=== PATIENT | female | born 1995 | race Two or more races ===

== ENCOUNTER 2016-09-15 16:42 | Emergency (ER) | payer SELFPAY ==
[2016-09-15 16:46] VITALS: BP 113/73
[2016-09-15] MEDS ORDERED: Rabies Vaccine, PCEC INJ* 1 ml IM ONE (18:59)
[2016-09-15] MEDS ORDERED: Rabies Immune Globulin 10 ML* 150 UNIT/ML VIAL IM ONE (19:01)
--- NOTE | 2016-09-15 19:22 | ED ---
Bite Injury/Animal - HPI Summary HPI Summary: 20F presents with bat in room when woke up yesterday. She says she woke up to a bat flying around her room. She denies any bite or scratch. She has never had the rabies immunization before. She did not capture the bat. Her tetanus she believes was two years ago. She goes to [place] and [place] near [place]. - History of Current Complaint Chief Complaint: EDGeneral Stated Complaint: BAT EXPOSURE Time Seen by Provider: 09/15/16 17:12 Pain Intensity: 0 - Allergies/Home Medications Allergies/Adverse Reactions: Allergies Allergy/AdvReac Type Severity Reaction Status Date / Time No Known Allergies Allergy Verified 09/15/16 16:45 PMH/Surg Hx/FS Hx/Imm Hx Endocrine/Hematology History: Denies: Hx Anticoagulant Therapy Cardiovascular History: Denies: Hx Hypertension Infectious Disease History: No Infectious Disease History: Denies: Traveled Outside the in Last 30 Days - Family History Known Family History: Negative: Cardiac Disease - Social History Alcohol Use: None Substance Use Type: Reports: None Smoking Status (MU): Never Smoked Tobacco Review of Systems Negative: Fever Negative: Chest Pain Negative: Shortness Of Breath Positive: Other - bat exposure All Other Systems Reviewed And Are Negative: Yes Physical Exam Triage Information Reviewed: Yes Vital Signs On Initial Exam: Initial Vitals Temp Pulse Resp BP Pulse Ox 98.3 F 89 16 113/73 100 09/15/16 16:45 09/15/16 16:45 09/15/16 16:45 09/15/16 16:45 09/15/16 16:45 Vital Signs Reviewed: Yes Appearance: Positive: Well-Appearing Skin: Positive: Warm, Dry Head/Face: Positive: Normal Head/Face Inspection Eyes: Positive: Normal, EOMI, MERLINE, Conjunctiva Clear ENT: Positive: Normal ENT inspection, Pharynx normal, TMs normal Respiratory/Lung Sounds: Positive: Clear to Auscultation, Breath Sounds Present Cardiovascular: Positive: Normal, RRR Diagnostics - Vital Signs Vital Signs Temp Pulse Resp BP Pulse Ox 09/15/16 18:07 98.3 F 89 16 113/73 99 09/15/16 16:45 98.3 F 89 16 113/73 100 - Laboratory Lab Statement: Any lab studies that have been ordered have been reviewed, and results considered in the medical decision making process. Bite Injury Course/Dx - Course Course Of Treatment: 20F presents with bat in room when woke up yesterday. She says she woke up to a bat flying around her room. She denies any bite or scratch. She has never had the rabies immunization before. She did not capture the bat. Her tetanus she believes was two years ago. nurse called [facility] and said to give rabies. no wound so nurse gave in arm. patient understands and agrees with plan. - Diagnoses Differential Diagnosis/HQI/PQRI: Positive: Puncture, Rabies Exposure, Other - abrasion Provider Diagnosis: Exposure to bat without known bite Discharge - Discharge Plan Condition: Good Disposition: HOME Patient Education Materials: Rabies Vaccine (ED) Referrals: [facility] [Primary Care Provider] - Additional Instructions: Follow up with health department Return to ED if develop any new or worsening symptoms
== END 2016-09-15 20:45 | disposition home or self-care (01) ==
LOC: ED 16:42
DX: Z20.3 Contact with and (suspected) exposure to rabies (principal)
CPT/HCPCS: 90375; 90675; 96372; 99282

== ENCOUNTER 2016-09-30 17:35 | Emergency (ER) | payer SELFPAY ==
[2016-09-30 17:48] VITALS: BP 102/68
[2016-09-30] MEDS ORDERED: Rabies VIRUS VACCINE, HDCV* 2.5 UNIT/ML 1 ML IM ONE (17:50)
--- NOTE | 2016-09-30 17:56 | UC ---
UC General HPI - HPI Summary HPI Summary: Pt woke to a bat in her room at [facility] in [place] about 2 weeks ago. Received rabies prophylaxis and started rabies series, here for day 14 rabies vaccine. Denies any new symptoms. - History of Current Complaint Chief Complaint: UCGeneralIllness Stated Complaint: RABIES Time Seen by Provider: 09/30/16 17:38 Hx Obtained From: Patient Hx Last Menstrual Period: JULY 2016 - HAS IRREGULAR PERIODS Onset/Duration: Resolved Current Severity: None - Allergy/Home Medications Allergies/Adverse Reactions: Allergies Allergy/AdvReac Type Severity Reaction Status Date / Time No Known Allergies Allergy Verified 09/30/16 17:43 Home Medications: Home Medications NK [No Home Medications Reported] 09/30/16 [History Confirmed 09/30/16] PMH/Surg Hx/FS Hx/Imm Hx Previously Healthy: Yes Other History Of: Negative For: Anticoagulant Therapy - Surgical History Surgical History: None - Family History Known Family History: Negative: Cardiac Disease - Social History Lives: With Family Alcohol Use: None Substance Use Type: None Smoking Status (MU): Never Smoked Tobacco Review of Systems Constitutional: Negative Skin: Negative Eyes: Negative ENT: Negative Respiratory: Negative Cardiovascular: Negative Gastrointestinal: Negative Genitourinary: Negative Motor: Negative Neurovascular: Negative Musculoskeletal: Negative Neurological: Negative Psychological: Negative All Other Systems Reviewed And Are Negative: Yes Physical Exam Triage Information Reviewed: Yes Appearance: Well-Appearing, No Pain Distress, Well-Nourished Vital Signs: Initial Vital Signs Temp 99.5 F 09/30/16 17:43 Pulse 77 09/30/16 17:43 Resp 16 09/30/16 17:43 BP 102/68 09/30/16 17:43 Pulse Ox 100 09/30/16 17:43 Vital Signs Reviewed: Yes Eye Exam: Normal, Other - PERRL Eyes: Positive: Conjunctiva Clear ENT Exam: Normal ENT: Positive: Normal ENT inspection, Hearing grossly normal, Pharynx normal, TMs normal Dental Exam: Normal Neck exam: Normal Respiratory Exam: Normal Respiratory: Positive: Chest non-tender, Lungs clear, Normal breath sounds, No respiratory distress, No accessory muscle use Cardiovascular Exam: Normal Cardiovascular: Positive: RRR, No Murmur Musculoskeletal Exam: Normal Neurological Exam: Normal Neurological: Positive: Alert Psychological Exam: Normal Skin Exam: Normal Course/Dx - Differential Dx - Multi-Symptom Provider Diagnoses: Rabies vaccine Discharge - Discharge Plan Condition: Stable Disposition: HOME Patient Education Materials: Rabies Vaccine (By injection) Referrals: [facility] [Primary Care Provider] - Additional Instructions: If you have any further questions, you can call the [facility].
== END 2016-09-30 18:25 | disposition home or self-care (01) ==
LOC: UCEAST 17:35
DX: Z20.3 Contact with and (suspected) exposure to rabies (principal); Z23 Encounter for immunization
CPT/HCPCS: 90471; 99211; G0463

== ENCOUNTER 2017-06-09 21:35 | Emergency (ER) | payer OTHER ==
--- NOTE | 2017-06-09 21:40 | UC ---
Respiratory Complaint HPI - HPI Summary HPI Summary: Pt presents with sinus congestion and post nasal drip for the last 5-6 days. Last night she began to have an "upset stomach", but says she was not nauseous and did not vomit - feels fine today. Today has a mild cough and feels burning in her throat. Has not been taking anything OTC. Denies fever, chills, sore throat, SOB, chest pain, abdominal pain, n/v/d/c. - History of Current Complaint Stated Complaint: CONGESTION Time Seen by Provider: 06/09/17 21:39 Hx Obtained From: Patient Hx Last Menstrual Period: JULY 2016 - HAS IRREGULAR PERIODS Onset/Duration: Gradual Onset Character: Cough: Nonproductive - Allergies/Home Medications Allergies/Adverse Reactions: Allergies Allergy/AdvReac Type Severity Reaction Status Date / Time No Known Allergies Allergy Verified 06/09/17 22:01 PMH/Surg Hx/FS Hx/Imm Hx - Additional Past Medical History Additional PMH: None Previously Healthy: Yes Other History Of: Negative For: Anticoagulant Therapy - Surgical History Surgical History: None - Family History Known Family History: Negative: Cardiac Disease - Social History Occupation: Student Lives: Dormitory/Roommates Alcohol Use: None Substance Use Type: None Smoking Status (MU): Never Smoked Tobacco Review of Systems Constitutional: Negative Skin: Negative Eyes: Negative ENT: Sinus Congestion Respiratory: Cough Cardiovascular: Negative Gastrointestinal: Negative Neurological: Negative Psychological: Negative All Other Systems Reviewed And Are Negative: Yes Physical Exam - Summary Physical Exam Summary: GENERAL: NAD. WDWN. No pain distress. SKIN: No rashes, sores, lesions, or open wounds. HEENT: Head: AT/NC Eyes: Conjunctiva clear without inflammation or discharge. Ears: Hearing grossly normal. TMs intact, no bulging, erythema, or edema. Nose: Nasal mucosa pink and moist. NTTP maxillary and frontal sinus. Throat: Posterior oropharynx without exudates, erythema, or tonsillar enlargement. Uvula midline. NECK: Supple. Nontender. No lymphadenopathy. CHEST: CTAB. No r/r/w. No accessory muscle use. Breathing comfortably and in no distress. CV: RRR. Without m/r/g. Pulses intact. Brisk cap refill. ABDOMEN: Soft. NTTP. No distention or guarding. No organomegaly. No CVA tenderness. Bowel sounds present NEURO: Alert. CN II-XII grossly intact. PSYCH: Age appropriate behavior. Triage Information Reviewed: Yes Respiratory Course/Dx - Course Course Of Treatment: Suspect viral illness. Pt is requesting antibiotic therapy. Will rx for zpak - Differential Dx/Diagnosis Provider Diagnoses: Viral illness Discharge - Sign-Out/Discharge Documenting (check all that apply): Discharge/Admit/Transfer - Discharge Plan Condition: Stable Disposition: HOME Prescriptions: Azithromycin TAB* [Zithromax TAB (Z-MICHAEL) 250 mg #6 tabs] 2 tab PO .TODAY, THEN 1 DAILY #1 michael Patient Education Materials: Viral Syndrome (ED) Referrals: [facility] [Primary Care Provider] - Additional Instructions: If you develop a fever, shortness of breath, chest pain, new or worsening symptoms - please call your PCP or go to the ED. Your blood pressure was high at todays visit. Please see your primary provider within 4 weeks for recheck and re-evaluation. - Billing Disposition and Condition Condition: STABLE Disposition: HOME
[2017-06-09] MEDS ORDERED: Azithromycin TAB* 250 MG PO ONE (21:59)
[2017-06-09 22:01] VITALS: BP 116/64
== END 2017-06-09 22:14 | disposition home or self-care (01) ==
LOC: UCEAST 21:35
DX: B34.9 Viral infection, unspecified (principal)
CPT/HCPCS: 99212; A9270-GY; G0463

== ENCOUNTER 2017-06-10 13:02 | Emergency (ER) | payer OTHER ==
--- NOTE | 2017-06-10 16:42 | RAD ---
Indication: Chest pain, cough, sickness. Comparison: No relevant prior exams available on the [facility] PACS for comparison. Technique: PA and lateral chest views. Report: Elevated lung volumes. No focal pulmonary lesion, compelling alveolar consolidation, pleural effusion, pneumothorax. The heart, pulmonary vasculature, and mediastinal contours are unremarkable. Unremarkable soft tissue contours and osseous structures. IMPRESSION: Elevated lung volumes may reflect obstructive lung disease or simply exuberant inspiratory effort for examination. No evidence for pneumonia.
[2017-06-10] MEDS ORDERED: Naproxen TAB* 250 MG PO ONE (16:58)
[2017-06-10 17:21] VITALS: BP 120/80
--- NOTE | 2017-06-10 17:59 | ED ---
Respiratory - HPI Summary HPI Summary: Patient is a 21-year-old female who presents emergency department for productive cough, sore throat, body aches, chest pain with coughing times several days. Patient was seen at [facility] and diagnosed with a viral syndrome but was placed on Zithromax anyway. Patient presents to the ER today because she is not feeling any better. Denies such symptoms of abdominal pain, vomiting, diarrhea, urinary symptoms. She has no past medical history. Does not take oral contraceptives. No recent surgeries or long car trips. Symptoms are mild in severity. Has been taking Motrin with no relief. - History of Current Complaint Chief Complaint: EDUpperRespComplaint Stated Complaint: SICKNESS/CHEST PAIN Time Seen by Provider: 06/10/17 15:24 Hx Obtained From: Patient Pain Intensity: 7 - Allergy/Home Medications Allergies/Adverse Reactions: Allergies Allergy/AdvReac Type Severity Reaction Status Date / Time No Known Allergies Allergy Verified 06/10/17 13:09 PMH/Surg Hx/FS Hx/Imm Hx Previously Healthy: Yes Endocrine/Hematology History: Denies: Hx Anticoagulant Therapy, Hx Diabetes, Hx Thyroid Disease Cardiovascular History: Denies: Hx Hypertension Respiratory History: Denies: Hx Asthma, Hx Chronic Obstructive Pulmonary Disease (COPD) GI History: Denies: Hx Ulcer Infectious Disease History: No Infectious Disease History: Denies: Hx Clostridium Difficile, Hx Hepatitis, Hx Human Immunodeficiency Virus (HIV), Hx of Known/Suspected MRSA, Hx Shingles, Hx Tuberculosis, Hx Known/ Suspected VRE, Hx Known/Suspected VRSA, History Other Infectious Disease, Traveled Outside the [place] in Last 30 Days - Family History Known Family History: Negative: Cardiac Disease - Social History Occupation: Student Lives: Dormitory/Roommates Alcohol Use: None Substance Use Type: Reports: None Smoking Status (MU): Never Smoked Tobacco Review of Systems Positive: Chills. Negative: Fever Eyes: Negative Positive: Sore Throat, Nasal Discharge Positive: Chest Pain Positive: Cough. Negative: Shortness Of Breath Gastrointestinal: Negative Negative: Abdominal Pain, Vomiting, Diarrhea, Nausea Genitourinary: Negative Positive: Myalgia Skin: Negative Positive: Headache. Negative: Weakness, Paresthesia, Numbness, Syncope All Other Systems Reviewed And Are Negative: Yes Physical Exam Triage Information Reviewed: Yes Vital Signs On Initial Exam: Initial Vitals Temp Pulse Resp BP Pulse Ox 98.8 F 74 14 118/78 100 06/10/17 13:04 06/10/17 13:04 06/10/17 13:04 06/10/17 13:04 06/10/17 13:04 Vital Signs Reviewed: Yes Appearance: Positive: Well-Appearing - Patient sitting up in bed in no acute distress. Skin: Positive: Warm, Dry ENT: Positive: Normal ENT inspection, Pharynx normal, TMs normal. Negative: Pharyngeal erythema, Tonsillar swelling, Tonsillar exudate Neck: Positive: Supple, Nontender. Negative: Nuchal Rigidity Respiratory/Lung Sounds: Positive: Clear to Auscultation, Breath Sounds Present Cardiovascular: Positive: Normal, RRR Abdomen Description: Positive: Nontender, Soft Musculoskeletal: Positive: Normal Neurological: Positive: Normal, CN Intact II-III Psychiatric: Positive: Normal Diagnostics - Vital Signs Vital Signs Temp Pulse Resp BP Pulse Ox 06/10/17 17:20 100.3 F 70 16 120/80 98 06/10/17 14:46 98.7 F 77 16 118/73 100 06/10/17 13:04 98.8 F 74 14 118/78 100 - Laboratory Lab Statement: Any lab studies that have been ordered have been reviewed, and results considered in the medical decision making process. Disposition - Course Course Of Treatment: Patient presenting to the emergency department with complaints of cough, sore throat, headache, myalgias and chest pain with coughing. She is afebrile with stable vital signs. Oxygen saturation is 100% room air which is normal. PERC score is 0. EKG was obtained in triage and shows a sinus rhythm of 70bpm, normal axis, short TX interval, early repolarization. Chest x-ray was obtained and shows no infiltrate or acute findings, reading per radiology. Prior to discharge patient did spike a mild fever. She was given a dose of naproxen. Results were discussed. Suspect viral etiology. Advised to increase fluids and rest. Routine between Tylenol and Motrin for pain and fever control. To follow up with [facility]. To return to the ER symptoms change or worsen. - Differential Dx - Cardiopulmonary Differential Diagnoses - Cardiopulmonary: Influenza, Lower Resp Infection, Pleurisy - Diagnoses Provider Diagnoses: Viral syndrome Discharge - Sign-Out/Discharge Documenting (check all that apply): Discharge/Admit/Transfer - Discharge Plan Condition: Good Disposition: HOME Patient Education Materials: Viral Syndrome (ED) Referrals: [facility] [Primary Care Provider] - Additional Instructions: Follow up in the [facility] clinic Rotate between Tylenol and Motrin for pain Increase fluids and rest Return to ER if symptoms change or worsen - Billing Disposition and Condition Condition: GOOD Disposition: HOME
== END 2017-06-10 17:21 | disposition home or self-care (01) ==
LOC: ED 13:02 → EEVIPCON 13:02 → ED 17:21
DX: B34.9 Viral infection, unspecified (principal)
CPT/HCPCS: 71046; 93005; 99282; A9270-GY